=== PATIENT | male | born 1945 | race Caucasian/White ===

== ENCOUNTER 2017-01-04 10:57 | Day surgery (SDC) | payer MEDICARE, OTHER ==
[2017-01-04] VITALS (7 sets, daily range): BP systolic 138–164; BP diastolic 73–98; PULSE 35–62; RESP 18; TEMP 97.7–98.4; O2SAT 97–100
[~2017-01-04] VITALS: Ht 185.4 cm; Wt 91.0 kg
[~2017-01-04 10:57] MED LIST: ASPI81TA82 PO; ENAL10TA7 PO; LEVO.025 PO; LIPI40TA PO; VENTAER INH
[2017-01-04] MEDS ORDERED: ATOR40TA16 PO (11:29)
[2017-01-04] MEDS ORDERED: ASPI81TA5 PO (11:29)
[2017-01-04] MEDS ORDERED: LEVO50TA4 PO (11:29)
[2017-01-04] MEDS ORDERED: METF500T PO (11:29)
[2017-01-04] MEDS ORDERED: LOSA50TA PO (11:29)
[2017-01-04] MEDS ORDERED: INSULIN HUMAN REGULAR 1,000 UNITS/10 ML VIAL SQ PRN (11:30)
[2017-01-04] MEDS ORDERED: NS 1000 ML IV SCH (11:30)
[2017-01-04] MEDS ORDERED: VANCOMYCIN 1000 MG/NS 250 ML IV SCH ×2 (11:30)
[2017-01-04] MEDS ORDERED: METOPROLOL TARTRATE 25 MG TAB PO PRN (11:30)
[2017-01-04] MEDS ORDERED: SODIUM CHLORID 0.9% 500 ML IV SCH (11:30)
[2017-01-04] MEDS ORDERED: POVIDONE IODINE 5% (ANTISEPSIS KIT) 4 APPLICATIONS EACH NARE SCH (11:30)
[2017-01-04] MEDS ORDERED: Hold AM Insulin & AM Hypoglycemic medications in diabetic patients XX PRN (11:30)
[2017-01-04] MEDS ORDERED: CHLORHEXIDINE GLUCONATE 2 % 1 PACK (2 CLOTHS) TOP SCH (11:30)
[2017-01-04] MEDS ORDERED: LACTATED RINGER'S 1000 ML IV SCH (11:30)
[2017-01-04 11:39] LABS: BASOPHIL # 0.1 TH/MM3 (0-0.2); BASOPHIL % 0.9 % (0.0-2.0); EOSINOPHIL # 0.4 TH/MM3 (0-0.4); EOSINOPHIL % 6.7 % (0.0-4.0); HEMATOCRIT 34.3 % (39.0-51.0); HEMO FLAGS DIFF FINAL; LYMPHOCYTE # 1.9 TH/MM3 (1.0-4.8); MEAN CELL VOLUME 83.8 FL (80.0-100.0); MEAN CORPUSCULAR HEMOGLOBIN 28.2 PG (27.0-34.0); MEAN CORPUSCULAR HGB CONC 33.6 % (32.0-36.0); MONO % 10.3 % (0.0-8.0); NEUT % 50.1 % (16.0-70.0); PLATELET COUNT 160 TH/MM3 (150-450); RED BLOOD COUNT 4.09 MIL/MM3 (4.50-5.90)
[2017-01-04 11:51] LABS: APTT (PATIENT) 27.3 SEC (24.3-30.1); PROTHROMBIN TIME - PATIENT 11.2 SEC (9.8-11.6)
[2017-01-04 12:03] LABS: BICARBONATE 28.4 MEQ/L (21.0-32.0); POTASSIUM 3.6 MEQ/L (3.5-5.1)
[2017-01-04] MEDS ORDERED: LIDOCAINE HCL 2% 50 ML VIAL ONE (12:36)
[2017-01-04] MEDS ORDERED: VANCOMYCIN 500 MG VIAL ONE (12:36)
[2017-01-04] MEDS ORDERED: PROPOFOL 200 MG/20 ML AMP IV ONE (12:40)
[2017-01-04] MEDS: ceFAZolin 2 GM PREMIX 50 ML IV SCH ×2 (13:06→22:12)
[2017-01-04] MEDS ORDERED: MIDAZOLAM HCL 2 MG/2 ML VIAL ONE (14:47)
--- NOTE | 2017-01-04 16:06 | RADRPT ---
EXAM DATE/TIME: 01/04/2017 15:35 [place] COMPARISON: ABDOMEN SINGLE VIEW, April 30, 2014, 18:38. INDICATIONS : Pneumothorax. Post Pacemaker. MEDICAL HISTORY : None. SURGICAL HISTORY : None. ENCOUNTER: Initial ACUITY: 1 day PAIN SCORE: 0/10 LOCATION: Bilateral chest FINDINGS: The heart is mildly enlarged. The lungs are clear. There is a transient space in good position. The o sseous structures are intact. CONCLUSION: 1. Mild cardiomegaly. No acute cardiopulmonary findings. Claude Mcconnell MD on January 04, 2017 at 16:00 Board Certified Radiologist. This report was verified electronically.
[2017-01-04] MEDS ORDERED: DO NOT ADM ANY ANTICOAGULANT DRUGS XX PRN (18:15)
[2017-01-04] MEDS ORDERED: ceFAZolin 2 GM PREMIX 50 ML IV SCH (21:00)
[2017-01-05] VITALS (12 sets, daily range): BP systolic 148–156; BP diastolic 94–95; PULSE 58–68; RESP 18–20; TEMP 98–98.2; O2SAT 95–97
[2017-01-05] MEDS ORDERED: FERR1TAB36 PO (04:53)
--- NOTE | 2017-01-05 08:06 | PD.CARD.PN ---
Subjective Subjective Remarks The patient denies pain, SOB, bleeding or dizziness. (Sarah Fitch) Subjective Remarks The exam, history, and the medical decision-making described in the above note were completed with the assistance of the mid-level provider. I reviewed and agree with the findings presented. I attest that I had a [id number] encounter with the patient on the same day, and personally performed and documented my assessment and findings in the medical record. (Matteo Augustine MD) Objective Vital Signs / I&O Vital Signs Date Time Temp Pulse Resp B/P Pulse Ox O2 Delivery O2 Flow Rate FiO2 01/05/17 07:00 98.2 60 18 156/95 95 01/05/17 06:00 58 01/05/17 05:00 62 01/05/17 04:00 58 01/05/17 03:00 58 01/05/17 02:00 58 01/05/17 01:00 58 01/05/17 00:00 98.0 60 20 148/94 97 01/05/17 00:00 58 01/04/17 23:00 58 01/04/17 22:00 58 01/04/17 21:00 58 01/04/17 20:00 58 01/04/17 20:00 98.0 60 18 155/96 97 01/04/17 19:00 62 01/04/17 17:44 98 Room Air 01/04/17 17:44 97.7 60 18 164/98 98 01/04/17 11:27 98.4 35 138/73 100 I/O 01/04/17 01/04/17 01/04/17 01/05/17 01/05/17 01/05/17 07:00 15:00 23:00 07:00 15:00 23:00 Intake Total 240 ml Output Total 875 ml Balance -635 ml Intake Oral 240 ml Output Urine Total 875 ml Physical Exam GENERAL: healthy appearing male SKIN: Warm and dry. HEAD: Normocephalic. EYES: No scleral icterus. No injection or drainage. NECK: Supple, trachea midline. CARDIOVASCULAR: Regular rate and rhythm without murmurs, gallops, or rubs. Left chest incision site dressing C/D/I RESPIRATORY: Breath sounds equal bilaterally. No accessory muscle use. GASTROINTESTINAL: Abdomen soft, non-tender, nondistended. MUSCULOSKELETAL: No cyanosis, or edema. BACK: Nontender without obvious deformity. No CVA tenderness. Laboratory Laboratory Tests Test 01/04/17 11:15 White Blood Count 6.0 TH/MM3 Red Blood Count 4.09 MIL/MM3 Hemoglobin 11.5 GM/DL Hematocrit 34.3 % Mean Corpuscular Volume 83.8 FL Mean Corpuscular Hemoglobin 28.2 PG Mean Corpuscular Hemoglobin 33.6 % Concent Red Cell Distribution Width 17.0 % Platelet Count 160 TH/MM3 Mean Platelet Volume 8.5 FL Neutrophils (%) (Auto) 50.1 % Lymphocytes (%) (Auto) 32.0 % Monocytes (%) (Auto) 10.3 % Eosinophils (%) (Auto) 6.7 % Basophils (%) (Auto) 0.9 % Neutrophils # (Auto) 3.0 TH/MM3 Lymphocytes # (Auto) 1.9 TH/MM3 Monocytes # (Auto) 0.6 TH/MM3 Eosinophils # (Auto) 0.4 TH/MM3 Basophils # (Auto) 0.1 TH/MM3 CBC Comment DIFF FINAL Differential Comment Prothrombin Time 11.2 SEC Prothromb Time International 1.0 RATIO Ratio Activated Partial 27.3 SEC Thromboplast Time Sodium Level 140 MEQ/L Potassium Level 3.6 MEQ/L Chloride Level 106 MEQ/L Carbon Dioxide Level 28.4 MEQ/L Anion Gap 6 MEQ/L Blood Urea Nitrogen 19 MG/DL Creatinine 0.79 MG/DL Estimat Glomerular Filtration 97 ML/MIN Rate Random Glucose 105 MG/DL Calcium Level 8.5 MG/DL Imaging Last 72 hours Impressions Chest X-Ray 01/04/17 0000 Signed Impressions: Service Date/Time: Wednesday, January 04, 2017 15:35 - CONCLUSION: 1. Mild cardiomegaly. No acute cardiopulmonary findings. Claude Mcconnell MD (Sarah Fitch) Assessment and Plan Assessment and Plan Assessment Second and third degree heart block Symptomatic bradycardia ASHD HTN DM HLD Plan: Device interrogated this morning. Functioning appropriately CXR clear, no PTX patient clear for discharge. Resume home medications (ASA, Lipitor, losartan, metformin, levothyroxin). Check BP at home. Follow up for previously scheduled appt 01/18/17 Assessment and plan discussed with Dr. Augustine. (Sarah Fitch) Sarah Fitch Jan 05, 2017 08:06 Matteo Augustine MD Jan 06, 2017 14:57
--- NOTE | 2017-01-05 08:24 | EKG ---
Date Performed: 01/04/2017 Time Performed: 11:31:18 PTAGE: 71 years EKG: sinus bradycardia with A-V dissociation 3rd degree AV block Possible anterior infarct - age undetermined Abnormal ECG PREVIOUS TRACING : 01/04/2017 11.29 DOCTOR: Singh Pereira Interpretating Date/Time 01/05/2017 08:24:11
--- NOTE | 2017-01-05 14:39 | EKG ---
Date Performed: 01/04/2017 Time Performed: 15:42:42 PTAGE: 71 years EKG: AV pacing Compared to prior tracing AV pacing has replaced third degree heart block Abnorma l ECG PREVIOUS TRACING : 01/04/2017 11.31 DOCTOR: Cristofer Perea Interpretating Date/Time 01/05/2017 14:37:04
--- NOTE | 2017-01-06 13:02 | MR ---
cc: MATTEO AUGUSTINE M.D., VARTAN MD DATE: 01/06/2017. PROCEDURE PERFORMED: A dual-chamber pacemaker implantation. INDICATIONS FOR THE PROCEDURE: Complete heart block, symptomatic bradycardia. CONSENT: Full informed consent was obtained prior to the procedure. The risks of , bleeding, pneumothorax, foreseen and unforeseen complications were reviewed. The risks of perforation, aspiration, , et cetera were reviewed. The patient fully appeared to understand and agreed to proceed. DESCRIPTION OF THE PROCEDURE IN DETAIL: The patient was draped and prepped in the usual manner. Left infraclavicular area was carefully infiltrated with lidocaine. Using a micropuncture technique with ultrasound two guidewires were placed in the left subclavian vein. Over the two micropuncture guidewires, two micropuncture dilator kits were used to dilate the tract to the vein. 0.035 guidewires were then placed in the vein and over these two introducer sheaths passed into the venous circulation. Through the introducer sheaths the ventricular and atrial lead passed into the venous circulation. Care was taken not to "bump the AV node". The ventricular lead was carefully placed in the apex of the right ventricle and the helical screw advanced and the atrial lead was placed in the right atrial appendage and the helical screw advanced. Care was taken to make sure there was enough slack in both leads. Both leads were then sewn down to the pectoralis fascia. Both A and B chambers were then checked for thresholds and satisfactory pacing and sensing thresholds were noted in both chambers. Both leads were then placed into the header of the pulse generator and the pulse generator set screws tightened but not over-tightened. The pulse generator was then sewn down to the pectoralis fascia. The pocket was flushed with vancomycin solution. The pocket was closed in three layers. CONCLUSION: Successful placement of dual-chamber pacemaker MRI-compatible. The ventricular lead was a Capture Novus [id number] 58cm. The atrial lead was a 52 cm lead and the device was a Medtronic [id number], MRI-compatible pacemaker, MRI serial #[id number]. PLAN: Will plan to discharge the patient in the a.m. after we do a chest x-ray to make sure we have no pneumothorax. Matteo Augustine MD, VANESSA,GUDELIA CLINT[place]/NORA /2:38 PM /12:50 PM [facility]
== END 2017-01-05 10:38 | disposition home or self-care (01) ==
LOC: HDIC 10:57 → HDOC 10:57 → HCIS 15:00 → HDOC 01-05 10:38
PROVIDERS: ATTEND Internal Medicine Cardiovascular Disease
DX: I44.2 Atrioventricular block, complete (principal); I49.5 Sick sinus syndrome; I65.29 Occlusion and stenosis of unspecified carotid artery; I25.10 Atherosclerotic heart disease of native coronary artery without angina pectoris; I10 Essential (primary) hypertension
CPT/HCPCS: 33208; 71010; 80048; 85025; 85610; 85730; 93005; C1785; C1898; J0690; J2250; J3010; J3370; J7050